=== PATIENT | male | born 1990 | race Caucasian/White ===

== ENCOUNTER → 2018-07-03 | Outpatient (CLI) | payer OTHER ==
--- NOTE | 2018-07-03 10:15 | RADIOLOGY REPORT (SQ) ---
EXAM DESCRIPTION: U/S LTD DUPLEX ART/MELVIN FLOW; U/S RETROPERITON (RENAL/AORTA) COMPLETED DATE/TIME: 07/03/2018 9:51 am REASON FOR STUDY: ATHEROSCLEROSIS OF RENAL ARTERY I70.1 ATHEROSCLEROSIS OF RENAL ARTERY I15.0 ASHLEY VASCULAR HYPERTENSION COMPARISON: None. TECHNIQUE: Realtime and static grayscale images acquired. Selected color Doppler, velocities and spe ctral images recorded. LIMITATIONS: Renal artery origins off of the aorta are difficult to visualize due to midline bowel g as FINDINGS: RIGHT KIDNEY: RENAL ARTERY VELOCITIES: At the hilum, 71 cm/sec. Segmental artery velocity 48 cm/sec. RENAL VEIN: Color doppler flow present, patent. VELOCITY RATIO: Normal. Normal waveforms. KIDNEY: 11.3 cm in length with normal cortical thickness. No significant pathology. LEFT KIDNEY: RENAL ARTERY VELOCITIES: At the hilum, 116 cm/sec. Segmental artery velocity 100 cm/sec. RENAL VEIN: Color doppler flow present, patent. VELOCITY RATIO: Normal. Normal waveforms. KIDNEY: 10.6 cm in length with normal cortical thickness. No significant pathology. BLADDER: Normal. OTHER: No other significant finding. IMPRESSION: NO DOPPLER EVIDENCE OF HEMODYNAMICALLY SIGNIFICANT RENAL ARTERY STENOSIS. COMMENT: NORMAL RENAL ARTERY/AORTA VELOCITY RATIO IS LESS THAN OR EQUAL TO 3.5. TECHNICAL DOCUMENTATION: JOB ID: [id number] [employer]- All Rights Reserved Reading location - IP/workstation name: [email or web address]
--- NOTE | 2018-07-03 10:15 | RADIOLOGY REPORT (SQ) ---
EXAM DESCRIPTION: U/S LTD DUPLEX ART/MELVIN FLOW; U/S RETROPERITON (RENAL/AORTA) COMPLETED DATE/TIME: 07/03/2018 9:51 am REASON FOR STUDY: ATHEROSCLEROSIS OF RENAL ARTERY I70.1 ATHEROSCLEROSIS OF RENAL ARTERY I15.0 ASHLEY VASCULAR HYPERTENSION COMPARISON: None. TECHNIQUE: Realtime and static grayscale images acquired. Selected color Doppler, velocities and spe ctral images recorded. LIMITATIONS: Renal artery origins off of the aorta are difficult to visualize due to midline bowel g as FINDINGS: RIGHT KIDNEY: RENAL ARTERY VELOCITIES: At the hilum, 71 cm/sec. Segmental artery velocity 48 cm/sec. RENAL VEIN: Color doppler flow present, patent. VELOCITY RATIO: Normal. Normal waveforms. KIDNEY: 11.3 cm in length with normal cortical thickness. No significant pathology. LEFT KIDNEY: RENAL ARTERY VELOCITIES: At the hilum, 116 cm/sec. Segmental artery velocity 100 cm/sec. RENAL VEIN: Color doppler flow present, patent. VELOCITY RATIO: Normal. Normal waveforms. KIDNEY: 10.6 cm in length with normal cortical thickness. No significant pathology. BLADDER: Normal. OTHER: No other significant finding. IMPRESSION: NO DOPPLER EVIDENCE OF HEMODYNAMICALLY SIGNIFICANT RENAL ARTERY STENOSIS. COMMENT: NORMAL RENAL ARTERY/AORTA VELOCITY RATIO IS LESS THAN OR EQUAL TO 3.5. TECHNICAL DOCUMENTATION: JOB ID: [id number] [employer]- All Rights Reserved Reading location - IP/workstation name: [email or web address]
== END ==
LOC: RAD 09:23
PROVIDERS: ATTEND Physician Assistant
DX: I15.0 Renovascular hypertension (principal)
CPT/HCPCS: 76770; 93976